=== PATIENT | female | born 1995 | race Two or more races ===

== ENCOUNTER 2016-10-18 08:47 | Emergency (ER) | payer BC, MEDICAID, OTHER ==
[~2016-10-18] VITALS: Ht 157.5 cm; Wt 52.2 kg
[2016-10-18 09:04] VITALS: BP 97/65
[2016-10-18] MEDS ORDERED: SODIUM CHLORIDE 0.9% 1,000 ML IV ONE ×2 (10:00→10:45)
[2016-10-18] MEDS ORDERED: ACETAMINOPHEN 325 MG TAB PO ONE (10:00)
[2016-10-18] MEDS ORDERED: LOPERAMIDE HCL 2 MG CAP PO ONE (10:15)
[2016-10-18] MEDS ORDERED: cefTRIAXone 1GM/50ML D5W 50 ML IV ONE (10:15)
[2016-10-18] MEDS ORDERED: ONDANSETRON HCL 4 MG/2 ML VIAL IV ONE (10:15)
[2016-10-18 10:19] LABS: Basophils # (auto) 0 uL; Basophils % (auto) 0.4 % (0.0-2.0); CONDITION Y; Eosinophils # (auto) 0 uL; Hematocrit 37.3 % (36.0-46.0); Hemoglobin 12.1 g/dL (12.2-16.2); Lymphocytes # (auto) 0.3 uL; Lymphocytes % (auto) 3.9 % (10.0-50.0); Mean Corpuscular Hemoglobin 27.1 pg (28.0-32.0); Mean Corpuscular Hgb Conc. 32.5 g/dL (32.0-36.0); Mean Corpuscular Volume 83.4 fL (80.0-100.0); Mean Platelet Volume 9.1 fL (7.4-10.4); Monocytes # (auto) 0.3 uL; Monocytes % (auto) 3.1 % (0.0-12.0); Neutrophils # (auto) 7.6 uL; Neutrophils % (auto) 92.6 % (37.0-80.0); Platelet Count (auto) 220 10^3/uL (140-450); Red Cell Distribution Width 15.2 % (11.6-16.0); White Blood Cell 8.2 10^3/uL (4.4-10.8)
[2016-10-18 10:25] LABS: Urine Bilirubin Negative (Negative); Urine Blood Negative /uL (Negative); Urine Color Yellow (Yellow); Urine Glucose Normal (Normal); Urine Ketone Negative (Negative); Urine Mucus FEW (None Seen); Urine Nitrite Negative (Negative); Urine RBC 2 /hpf (0 - 4); Urine Squamous Epithelial Cell FEW /hpf (<5); Urine Urobilinogen Normal (Negative)
[2016-10-18 10:38] LABS: BUN/Creatinine Ratio 14.8; Calcium 8.5 mg/dL (8.5-10.1); Potassium 4.1 mmol/L (3.5-5.1)
[2016-10-18 10:41] LABS: Bilirubin, Total 0.4 mg/dL (0.2-1.0); Total Protein 7.6 g/dL (6.4-8.2)
== END 2016-10-18 11:57 | disposition home or self-care (01) ==
LOC: ER 08:47
DX: E86.0 Dehydration (principal); K52.9 Noninfective gastroenteritis and colitis, unspecified
CPT/HCPCS: 36415; 74176; 80053; 81001; 81025; 84702; 85025; 96361; 96365; 96375; 99285; J0696; J2405; J7030

== ENCOUNTER 2018-07-26 01:12 | Observation (INO) | payer BC, MEDICAID ==
[~2018-07-26] VITALS: Ht 157.5 cm; Wt 66.2 kg
[2018-07-26] MEDS ORDERED: PREN-153 OR (01:45)
[2018-07-26] MEDS ORDERED: FERR27TA2 PO (01:46)
[2018-07-27] MEDS ORDERED: FERR-7 PO (01:45)
== END 2018-07-26 03:13 | disposition home or self-care (01) | DRG 566 ==
LOC: LDRP 01:12
PROVIDERS: ADMIT Obstetrics & Gynecology; ATTEND Obstetrics & Gynecology
DX: O62.9 Abnormality of forces of labor, unspecified (principal); O48.0 Post-term pregnancy; Z3A.40 40 weeks gestation of pregnancy
CPT/HCPCS: 59025; 81002; G0378

== ENCOUNTER 2018-07-26 12:15 | Observation (INO) | payer MEDICAID ==
[~2018-07-26] VITALS: Ht 157.5 cm; Wt 66.2 kg
[~2018-07-26 12:15] MED LIST: FERR27TA2 PO; PREN-153 OR
[2018-07-27] MEDS ORDERED: FERR-7 PO (01:45)
== END 2018-07-26 14:45 | disposition home or self-care (01) | DRG 566 ==
LOC: LDRP 12:15
PROVIDERS: ADMIT Specialist; ATTEND Specialist
DX: O62.9 Abnormality of forces of labor, unspecified (principal); O48.0 Post-term pregnancy; Z3A.40 40 weeks gestation of pregnancy
CPT/HCPCS: 59025; 76818; 81002; G0378

== ENCOUNTER 2018-07-27 00:04 | Inpatient (IN) | payer MEDICAID ==
[~2018-07-27] VITALS: Ht 157.5 cm; Wt 66.2 kg
[2018-07-27] MEDS ORDERED: LACT. RINGERS/OXYTOCIN 20UNITS 1,000 ML IV SCH (00:44)
[2018-07-27] MEDS ORDERED: LIDOCAINE 2%HCL (LOCAL ANESTH.) INJ 20ML MDV ID PRN (00:45)
[2018-07-27] MEDS ORDERED: WITCH HAZEL-GLYCERIN PAD TOP PRN (00:45)
[2018-07-27] MEDS ORDERED: NALBUPHINE HCL 10 MG/1ml INJECTION IV PRN (00:45)
[2018-07-27] MEDS ORDERED: DERMOPLAST 60ML BOTTLE TOP PRN (00:45)
[2018-07-27] MEDS ORDERED: METHYLERGONOVINE MALEATE 0.2 MG/ML AMP IM PRN (00:45)
[2018-07-27] MEDS ORDERED: PHISODERM TOP SOLN 240ML BTL TOP PRN (00:45)
[2018-07-27] MEDS: LACTATED RINGER'S 1,000 ML IV SCH ×3 (01:23→06:08)
[2018-07-27] MEDS ORDERED: FERR-7 PO (01:45)
[2018-07-27 02:27] LABS: Nucleated Red Blood Cells % 0.1 %; White Blood Cell 9.1 10^3/uL (4.4-10.8)
[2018-07-27 02:31] LABS: Basophils # (auto) 0 uL; Basophils % (auto) 0.3 % (0.0-2.0); Eosinophils # (auto) 0 uL; Eosinophils % (auto) 0.1 % (0.0-7.0); Lymphocytes # (auto) 1.5 uL; Lymphocytes % (auto) 15.9 % (10.0-50.0); Mean Corpuscular Hemoglobin 27.4 pg (28.0-32.0); Mean Corpuscular Hgb Conc. 32.4 g/dL (32.0-36.0); Mean Corpuscular Volume 84.8 fL (80.0-100.0); Monocytes # (auto) 0.5 uL; Monocytes % (auto) 5.2 % (0.0-12.0); Neutrophils # (auto) 7.2 uL; Neutrophils % (auto) 78.5 % (37.0-80.0); Platelet Count (auto) 143 10^3/uL (140-450); Red Blood Cells 4.01 10^6/uL (4.0-5.20)
[2018-07-27 02:32] LABS: Albumin 2.7 g/dL (3.4-5.0); INR 0.83 (0.9-1.15); Partial Thromboplastin Time 25.6 sec (23.78-33.04); Potassium 3.8 mmol/L (3.5-5.1); Uric Acid 5.9 mg/dL (2.6-6.0)
[2018-07-27 02:33] LABS: Red Cell Distribution Width 24.9 % (11.8-14.3)
[2018-07-27 02:35] LABS: BUN/Creatinine Ratio 16.9; Bilirubin, Total 0.2 mg/dL (0.2-1.0); Total Protein 6.9 g/dL (6.4-8.2)
[2018-07-27 02:42] LABS: Alcohol, Urine < 3.0 mg/dL (0-5); Amphetamine Screen, Urine NEGATIVE (NEGATIVE); Barbiturate Scree,Urine NEGATIVE (NEGATIVE); Benzodiazephine Screen, Urine NEGATIVE (NEGATIVE); Cannabinoid Screen, Urine NEGATIVE (NEGATIVE); Cocaine Screen, Urine NEGATIVE (NEGATIVE); Opiate Scree,Urine NEGATIVE (NEGATIVE); Phencyclidine Screen, Urine NEGATIVE (NEGATIVE)
[2018-07-27 02:45] LABS: Urine Bacteria NONE SEEN /hpf (None Seen); Urine Blood 3+ /uL (Negative); Urine Mucus FEW (None Seen); Urine WBC 49 /hpf (0 - 5)
[2018-07-27] MEDS ORDERED: NALOXONE HCL 0.4 MG/ML VIAL IV ONE (05:00)
[2018-07-27] MEDS ORDERED: ePHEDrine SULFATE 50 MG/ML AMP IV ONE (05:00)
[2018-07-27] MEDS ORDERED: fentaNYL W ROPIVACAINE 150 ML EPI SCH (05:00)
[2018-07-27 18:42] VITALS: BP 133/78
[2018-07-27] MEDS: IBUPROFEN 600 MG TAB PO PRN (20:24)
--- NOTE | 2018-07-27 20:30 | NUR ---
Education: Patient educated on proper latch and different positions. Patient assisted with football hold with return demonstration.
[2018-07-27 22:56] VITALS: BP 115/74
[2018-07-28 02:59] VITALS: BP 110/69
[2018-07-28] MEDS: IBUPROFEN 600 MG TAB PO PRN (04:50)
--- NOTE | 2018-07-28 04:56 | NUR ---
IV removal IV DC'd with sterile technique, catheter fully intact. Pressure dressing applied to site. Patient tolerated procedure well.
[2018-07-28 07:30] VITALS: BP 112/69
[2018-07-28 11:30] VITALS: BP 113/75
[2018-07-28 15:30] VITALS: BP 111/70
--- NOTE | 2018-07-28 16:45 | NUR ---
Discharge: Discharge instructions given as ordered. Pt encouraged to follow up with [facility] as instructed. All questions and concerns addressed. Patient verbalized understanding. Medication reconciliation completed and copy given to patient. All required/requested vaccines given and copies of vaccinations given to patient. Patient encouraged to prepare to depart unit.
--- NOTE | 2018-07-28 17:00 | NUR ---
Discharge: Patient taken to vehicle via wheelchair with all personal belongings, accompanied by staff and family member. No distress noted at time of departure, no adverse changes in status since initial assessment.
== END 2018-07-28 17:00 | disposition home or self-care (01) | DRG 560 ==
LOC: LDRP 00:04 → OBSVTOIN 00:41 → LDRP 04:25
PROVIDERS: ADMIT Specialist; ATTEND Specialist
PROC: 10E0XZZ Delivery of Products of Conception, External Approach (ICD-10-PCS; principal; 2018-07-27)
PROC: 3E0R3BZ Introduction of Anesthetic Agent into Spinal Canal, Percutaneous Approach (ICD-10-PCS; 2018-07-27)
PROC: 00HU33Z Insertion of Infusion Device into Spinal Canal, Percutaneous Approach (ICD-10-PCS; 2018-07-27)
PROC: 0W8NXZZ Division of Female Perineum, External Approach (ICD-10-PCS; 2018-07-27)
DX: O48.0 Post-term pregnancy (principal); O70.9 Perineal laceration during delivery, unspecified; Z37.0 Single live birth; Z3A.40 40 weeks gestation of pregnancy
CPT/HCPCS: 36415; 51702; 59025; 59409; 62282; 80053; 80307; 81001; 81002; 84550; 85025; 85610; 85730; 86592; 86850; 86900; 86901; 94760; 96361; 96366; G0378; J2590; J3010

== ENCOUNTER 2018-12-24 11:17 | Emergency (ER) | payer SELFPAY ==
[~2018-12-24] VITALS: Ht 157.5 cm; Wt 59.0 kg
[~2018-12-24 11:17] MED LIST changes: +FERR-7 PO; -FERR27TA2 PO
[2018-12-24 11:40] VITALS: BP 112/70
[2018-12-24] MEDS ORDERED: KETOROLAC TROMETH 60MG/2ML VIAL IM ONE (13:45)
== END 2018-12-24 14:08 | disposition home or self-care (01) ==
LOC: ER 11:17
DX: S63.502A Unspecified sprain of left wrist, initial encounter (principal); X58.XXXA Exposure to other specified factors, initial encounter; Y93.89 Activity, other specified; Y99.8 Other external cause status; Y92.89 Other specified places as the place of occurrence of the external cause
CPT/HCPCS: 29125; 73110; 96372; 99283; J1885